=== PATIENT | female | born 1980 | race Caucasian/White ===

== ENCOUNTER 2023-10-18 08:30 | Inpatient (IN) ==
[2023-10-18] MEDS ORDERED: Nalbuphine 10 MG/ML 1 ML VIAL IV PRN (09:19)
[2023-10-18] MEDS ORDERED: Prochlorperazine 5 mg/ml 2 ml VIAL (10 mg) IV PRN (09:19)
[2023-10-18] MEDS ORDERED: Lidocaine 1% VIAL 10 MG/ML 30 ML VIAL INJ PRN (09:19)
[2023-10-18] MEDS: miSOPROStol 100 mcg TAB VAGINAL SCH (10:32)
[2023-10-18 11:27] LABS: Urine Benzodiazepine Screen None Detected (None Detect); Urine Cannabinoids Screen None Detected (None Detect); Urine Opiates Screen None Detected (None Detect)
[2023-10-18] MEDS: Dinoprostone 10 MG VAG.SUPP VAGINAL ONE (19:52)
[2023-10-19] MEDS: miSOPROStol 100 mcg TAB PO ONE ×2 (09:09→13:30)
[2023-10-19] MEDS: Buffered Lidocaine 1% SYRIN 1 ml INTRADERM ONE (12:31)
[2023-10-19 13:20] LABS: ABS Eosinophils 0.1 10^3/uL (0.0-0.5); ABS Monocytes 0.4 10^3/uL (0.0-0.9); ABS Neutrophils 6.9 10^3/uL (1.5-7.6); ABS Nucleated RBC 0.01 10^3/ul; Eosinophil % 0.7 %; Hematocrit 38.8 % (35-45); Hemoglobin 12.7 g/dL (11.5-14.3); Lymphocyte % 12.4 %; Mean Corpuscular Hemoglobin 27.2 pg (27-33); Mean Corpuscular Hgb Conc 32.8 g/dL (31-36); Mean Corpuscular Volume 82.8 fL (80-97); Mean Platelet Volume 9.5 fL (7.5-11.2); Nucleated Red Blood Cells % 0.1 %/100WBC (0.0-0.8); Platelet Count 130 10^3/uL (150-450); Red Blood Count 4.68 10^6/uL (3.63-4.92); Red Cell Distribution Width 17.1 % (12-17); White Blood Count 8.5 10^3/uL (3.8-11.8)
[2023-10-19] MEDS: Lactated Ringers 1000 ml BAG 1,000 ML IV ONE (18:06)
[2023-10-19] MEDS: OBEPIDURAL (200 ML) 200 ML EPIDURAL ONE (22:08)
[2023-10-19] MEDS ORDERED: Phenylephrine 40 mcg/mL 10mL (400mcg) SYRINGE IV PUSH PRN ×2 (22:26)
[2023-10-19] MEDS ORDERED: Sodium Citrate/Citric Acid LIQ 15 ML UDC PO PRN (22:26)
[2023-10-19] MEDS: Lactated Ringers 1000 ml BAG 1,000 ML IV SCH (22:40)
[2023-10-19] MEDS: Methylergonovine 0.2 mg AMPULE 1 ml AMP ONE (23:37)
[2023-10-19] MEDS: ceFAZolin 2 GM PREMIX 2 GM/50 ML BAG ONE (23:41)
[2023-10-19] MEDS ORDERED: Lactated Ringers 1000 ml BAG 1,000 ML IV SCH (23:45)
[2023-10-19] MEDS ORDERED: Glycerin ADULT 2.4 gm SUPP PR PRN (23:54)
[2023-10-19] MEDS ORDERED: Dibucaine 1% OINT 28.35 GM TUBE PR PRN (23:54)
[2023-10-19] MEDS ORDERED: Witch Hazel PAD JAR TOPICAL PRN (23:54)
[2023-10-20] MEDS: Oxytocin in LR 20,000 MILLI.UNIT/1,000 ML BAG IV SCH ×2 (00:35→19:49)
[2023-10-20 00:51] LABS: Hematocrit 34.9 % (35-45); Hemoglobin 11.2 g/dL (11.5-14.3); Mean Corpuscular Hemoglobin 26.9 pg (27-33); Mean Corpuscular Hgb Conc 32.1 g/dL (31-36); Mean Corpuscular Volume 83.8 fL (80-97); Mean Platelet Volume 9.8 fL (7.5-11.2); Platelet Count 128 10^3/uL (150-450); Red Blood Count 4.17 10^6/uL (3.63-4.92); Red Cell Distribution Width 17.2 % (12-17); White Blood Count 16.4 10^3/uL (3.8-11.8)
[2023-10-20 00:57] LABS: Urine Appearance Clear; Urine Bilirubin Negative (Negative); Urine Blood Negative (Negative); Urine Color Light-Yellow; Urine Glucose Negative (Negative); Urine Ketones 1+ (Negative); Urine Nitrite Negative (Negative); Urine Protein Trace (Negative); Urine Specific Gravity 1.024 (1.002-1.030); Urine Urobilinogen Negative (Negative)
[2023-10-20] MEDS: Methylergonovine 0.2 mg AMPULE 1 ml AMP IM ONE (02:56)
[2023-10-20] MEDS: OBEPIDURAL (200 ML) 200 ML EPIDURAL SCH (02:57)
[2023-10-20 08:40] LABS: ABS Basophils 0.1 10^3/uL (0.0-0.1); ABS Lymphocytes 1.4 10^3/uL (1.0-4.8); ABS Monocytes 0.8 10^3/uL (0.0-0.9); ABS Neutrophils 10.3 10^3/uL (1.5-7.6); ABS Nucleated RBC 0.01 10^3/ul; Eosinophil % 0.2 %; Hematocrit 28.1 % (35-45); Hemoglobin 9.4 g/dL (11.5-14.3); Lymphocyte % 11.1 %; Mean Corpuscular Hemoglobin 27.9 pg (27-33); Mean Corpuscular Hgb Conc 33.5 g/dL (31-36); Mean Corpuscular Volume 83.3 fL (80-97); Mean Platelet Volume 9.3 fL (7.5-11.2); Platelet Count 104 10^3/uL (150-450); Red Blood Count 3.37 10^6/uL (3.63-4.92); White Blood Count 12.7 10^3/uL (3.8-11.8)
[2023-10-20] MEDS: Lidocaine 1.5% EPI 1:200,000 30 ML SDV ONE (19:49)
[2023-10-20] MEDS: Buffered Lidocaine 1% SYRIN 1 ml ONE (19:49)
[2023-10-20] MEDS: Lactated Ringers 1000 ml BAG 1,000 ML IV SCH (19:50)
[2023-10-20] MEDS: Lactated Ringers 1000 ml BAG 1,000 ML IV ONE (19:50)
[2023-10-20] MEDS: Phenylephrine 40 mcg/mL 10mL (400mcg) SYRINGE ONE (19:50)
[2023-10-20] MEDS: ceFAZolin 2 GM PREMIX 2 GM/50 ML BAG IVPB ONE (21:49)
[2023-10-21 08:57] VITALS: BP 115/73
== END 2023-10-21 11:36 | disposition home or self-care (01) | DRG 542 ==
LOC: MCHOBOUT 08:30 → MCHOB 09:10
PROVIDERS: ADMIT Obstetrics & Gynecology; ATTEND Obstetrics & Gynecology